=== PATIENT | female | born 1990 | race Caucasian/White ===

== ENCOUNTER → 2017-09-20 | Outpatient (CLI) | payer OTHER ==
[2015-12-16 09:37] VITALS: BP 105/70
[~2017-09-20] MED LIST: ALBU8.5H8 INH; CEFP200T PO; CETI10TA22 PO
--- NOTE | 2017-09-20 15:20 | RAD ---
Pelvic ultrasound History: Prolonged menstrual periods, pelvic discomfort. Comparison: Ultrasound pelvis August 21, 2011. Technique: Transabdominal ultrasound was performed to evaluate the uterine fundus. Endovaginal imaging was performed to evaluate optimally the endometrial canal and lower uterine segment. TRANSABDOMINAL IMAGING Findings: The uterus measures 7.7 cm in length and is grossly unremarkable. Endometrium is not well seen. Right ovary measures 1.6 x 1.5 x 2.9 cm and is unremarkable. The left ovary measures 1.3 x 1.4 x 1.7 cm and is unremarkable. No adnexal masses are identified. No significant free fluid is identified within the pelvis. Both ovaries demonstrate normal vascular flow upon Doppler interrogation and are without evidence of torsion. ENDOVAGINAL IMAGING Findings: The uterus measures 9.1 cm in length. Anterior fundus demonstrates intramural leiomyoma measuring 2.8 cm. The endometrium measures 3 mm. Right ovary measures 2.0 x 1.2 x 1.7 cm and is unremarkable. The left ovary measures 3.1 x 1.2 x 2.0 cm and is unremarkable. No adnexal masses are identified. Small amount of physiologic free fluid is present. Both ovaries demonstrate normal vascular flow upon Doppler interrogation and are without evidence of torsion. Impression: 1. Uterine leiomyoma measuring 2.8 cm maximum dimension. 2. Otherwise, unremarkable pelvic ultrasound. Electronically signed by: Dilan Cooley MD (09/20/2017 3:16 PM) [id number]
== END | disposition home or self-care (01) ==
LOC: US 13:43
PROVIDERS: ATTEND Family Medicine
DX: D25.9 Leiomyoma of uterus, unspecified (principal); J45.909 Unspecified asthma, uncomplicated; Z87.442 Personal history of urinary calculi
CPT/HCPCS: 76830; 76856

== ENCOUNTER → 2018-07-11 | Outpatient (CLI) | payer BC, OTHER ==
[2015-12-16 09:37] VITALS: BP 105/70
[~2018-07-11] MED LIST changes: +ALBU2.5V8 INH; -ALBU8.5H8 INH
--- NOTE | 2018-07-11 15:35 | RAD ---
Indication: Palpable right breast mass TECHNIQUE: Grayscale and color Doppler images of the right breast in the region of palpable abnormality COMPARISON: Same day diagnostic mammogram FINDINGS: At 9:30 position approximately 3 cm from the nipple there are 2 oval-shaped hypoechoic solid appearing masses with well-circumscribed margins the larger one measuring 1.7 x 1.2 x 0.7 cm with internal vascularity. The second one measures 1.3 x 1.5 x 0.7 cm. IMPRESSION: 2 solid masses in the palpable region in the right outer breast. Differential diagnoses includes abnormal enlarged lymph nodes or primary breast lesion such as fibroadenoma. Although malignancy is not ruled out. BI-RADS 4: Suspicious finding. Ultrasound-guided FNA or core biopsy recommended. Electronically signed by: Axel Worthy DO (07/11/2018 3:32 PM) [facility]
--- NOTE | 2018-07-11 15:38 | RAD ---
DATE: 07/11/2018 EXAM: DIGITAL DIAGNOSTIC RT HISTORY: Palpable right breast lump for 2 months. COMPARISON: None This study was interpreted with the benefit of Computerized Aided Detection (CAD). FINDINGS: Breast Density: DENSE The breast Parenchyma is dense, which could reduce the sensitivity of mammography. Breast parenchyma level density D.. the skin and nipple are within normal limits. There is a 8.4 x 11.6 mm round well-circumscribed mass in the outer right breast at 9:00 position approximately 5 cm from the nipple corresponding to palpable abnormality. IMPRESSION: Right breast mass as described above. Please see ultrasound report from the same day. BI-RADS CATEGORY: 4 SUSPICIOUS ABNORMALITY-BIOPSY SHOULD BE CONSIDERED RECOMMENDED FOLLOW-UP: BIO BIOPSY RECOMMENDED. Ultrasound-guided FNA and possibly core needle biopsy is recommended. PQRS compliance statement: Patient information was entered into a reminder system with a target due date for the next mammogram. Mammography is a sensitive method for finding small breast cancers, but it does not detect them all and is not a substitute for careful clinical examination. A negative mammogram does not negate a clinically suspicious finding and should not result in delay in biopsying a clinically suspicious abnormality. "Our facility is accredited by the [employer] Mammography Program."
== END | disposition home or self-care (01) ==
LOC: US 13:49
PROVIDERS: ATTEND Physician Assistant
DX: N63.11 Unspecified lump in the right breast, upper outer quadrant (principal)
CPT/HCPCS: 76641; 77065